=== PATIENT | male | born 1995 | race Caucasian/White ===

== ENCOUNTER 2018-01-23 06:48 | Emergency (ER) | payer SELFPAY ==
[2018-01-23] MEDS ORDERED: MORPHINE SULFATE 2 MG/ML DISP.SYRIN. IV/SQ (07:30)
[2018-01-23 07:37] LABS: ADD MAN DIFF? NO
[2018-01-23 07:40] LABS: BASO # 0.1 x10^3/uL (0.0-0.2); BASO % 1 % (0-3); EOS # 0.1 x10^3/uL (0.0-0.7); EOS % 2 % (0-3); HEMATOCRIT 44.3 % (39.0-53.0); HEMOGLOBIN 15.3 g/dL (13.0-17.5); LYMPH # 2.5 x10^3/uL (1.0-4.8); LYMPH % 27 % (24-48); MEAN CORPUSCULAR HEMOGLOBIN 32 pg (25-35); MEAN CORPUSCULAR HGB CONC 35 g/dL (31-37); MEAN CORPUSCULAR VOLUME 93 fL (79-100); MONO # 0.8 x10^3/uL (0.0-1.1); MONO % 9 % (0-9); NEUT # 5.6 x10^3uL (1.8-7.7); NEUT % 61 % (31-73); PLATELET COUNT 228 x10^3/uL (140-400); RED BLOOD COUNT 4.78 x10^6/uL (4.30-5.70); RED CELL DISTRIBUTION WIDTH 13.1 % (11.5-14.5); WHITE BLOOD COUNT 9.1 x10^3/uL (4.0-11.0)
[2018-01-23] MEDS: IV NORMAL SALINE 1000ML BAG 1,000 ML IV (07:41)
[2018-01-23] MEDS: ONDANSETRON PF 4 MG/2 ML VIAL. IV (07:42)
[2018-01-23] MEDS: MORPHINE SULFATE 4 MG/ML DISP.SYRIN. IV/SQ (07:43)
[2018-01-23 07:51] LABS: ANION GAP 10 (6-14); BLOOD UREA NITROGEN 17 mg/dL (8-26); CALCIUM 9.1 mg/dL (8.5-10.1); CARBON DIOXIDE 26 mmol/L (21-32); CHLORIDE 103 mmol/L (98-107); CREATININE 0.8 mg/dL (0.7-1.3); GLUCOSE 105 mg/dL (70-99); POTASSIUM 3.9 mmol/L (3.5-5.1); SODIUM 139 mmol/L (136-145)
[2018-01-23 07:54] LABS: BILIRUBIN,URINE NEGATIVE (NEG); CLARITY,URINE CLEAR; COLOR,URINE YELLOW; GLUCOSE,URINE NEGATIVE (NEG); NITRITE,URINE NEGATIVE (NEG); PROTEIN,URINE NEGATIVE (NEG-TRACE); UROBILINOGEN,URINE 0.2 mg/dL (0.2 mg/dL)
[2018-01-23 07:57] LABS: ALBUMIN 3.8 g/dL (3.4-5.0); ALK PHOS 70 U/L (46-116); ALT (SGPT) 22 U/L (16-63); AST (SGOT) 16 U/L (15-37); DIRECT BILIRUBIN 0.1 mg/dL (0.0-0.2); TOTAL BILIRUBIN 0.4 mg/dL (0.2-1.0); TOTAL PROTEIN 7.5 g/dL (6.4-8.2)
[2018-01-23 08:14] LABS: BACTERIA,URINE FEW /HPF (0-FEW); RBC,URINE RARE /HPF (0-2); SQUAMOUS EPITHELIAL CELL,UR OCC /LPF; WBC,URINE OCC /HPF (0-4)
[2018-01-23] MEDS ORDERED: CONTRAST GIVEN MC (08:45)
[2018-01-23] MEDS ORDERED: IOHEXOL 300 MG/ML 100ML VIAL. IV (08:45)
[2018-01-23 08:52] LABS: BARBITURATES NEG (NEG); BENZODIAZEPINES NEG (NEG); CANNABINOIDS POS (NEG); COCAINE NEG (NEG); METHADONE NEG (NEG); OPIATES POS (NEG); PHENCYCLIDINE NEG (NEG)
[2018-01-23 08:53] LABS: AMPHETAMINE/METHAMPHETAMINE NEG (NEG); ETHANOL, URINE NEG (NEG)
== END 2018-01-23 08:43 | disposition left against medical advice (07) ==
LOC: ER 06:48
DX: R10.32 Left lower quadrant pain (principal); R35.0 Frequency of micturition
CPT/HCPCS: 36415; 80048; 80076; 80307; 81001; 85025; 96361; 96374; 96375; 99284-25; J2270; J2405; J7030

== ENCOUNTER 2020-03-16 14:20 | Emergency (ER) | payer SELFPAY ==
[~2020-03-16] VITALS: Ht 175.3 cm; Wt 96.0 kg
[~2020-03-16 14:20] MED LIST: DICY20TA3 PO
[2020-03-16 14:27] VITALS: BP 140/88
[2020-03-16] MEDS ORDERED: CYCL10TA2 PO (15:10)
[2020-03-16] MEDS ORDERED: METH4TAB2 PO (15:10)
--- NOTE | 2020-03-16 15:10 | PHYS DOC ---
Past Medical History Past Medical History: Unknown, Other Additional Past Medical Histor: "bleeding ulcer" Past Surgical History: Other Additional Past Surgical Histo: right wrist surgery Smoking Status: Current Every Day Smoker Alcohol Use: None Drug Use: Marijuana Social History Narrative: LAST USED [facility] 8 MOS AGO General Adult EDM: Chief Complaint: BACK PAIN OR INJURY HPI: HPI: Patient is a 24 year old male who presents the ED today complaining of 7 out of 10 mid and upper back pain that began 2 days ago after lifting furniture helping a friend move. Patient denies any injury. Reports the pain is worse when he is laying down. He states his been trying natural remedies with no relief and would like something for his pain. He reports he is allergic to Tylenol ibuprofen and tramadol. Denies any pain radiating to bilateral upper or lower extremities. Denies any numbness or tingling to bilateral upper or lower extremities. Review of Systems: Review of Systems: Constitutional: Denies fever or chills. [] GI: Denies abdominal pain, nausea, vomiting, bloody stools or diarrhea. [] : Denies dysuria. [] Musculoskeletal: Reports mid and upper back Integument: Denies rash. [] Neurologic: Denies headache, focal weakness or sensory changes. [] Psychiatric: Denies depression or anxiety. [] Heart Score: Risk Factors: Risk Factors: DM, Current or recent (<one month) smoker, HTN, HLP, family history of CAD, obesity. Risk Scores: Score 0 - 3: 2.5% MACE over next 6 weeks - Discharge Home Score 4 - 6: 20.3% MACE over next 6 weeks - Admit for Clinical Observation Score 7 - 10: 72.7% MACE over next 6 weeks - Early Invasive Strategies Allergies: Allergies: Allergies Coded Allergies Type Severity Reaction Last Updated Verified acetaminophen Allergy Intermediate 03/16/20 Yes ibuprofen Allergy Intermediate 03/16/20 Yes tramadol Allergy Intermediate 03/16/20 Yes Physical Exam: PE: Constitutional: Well developed, well nourished, no acute distress, non-toxic appearance. [] Abdomen: Bowel sounds normal, soft, no tenderness, no masses, no pulsatile masses. [] Skin: Warm, dry, no erythema, no rash. [] Back: Spine exam deferred, patient thrashing around in the chair Extremities: No tenderness, no cyanosis, no clubbing, ROM intact, no edema. [] Neurologic: Alert and oriented X 3, normal motor function, normal sensory function, no focal deficits noted. [] Psychologic: Affect normal, judgement normal, mood normal. [] Current Patient Data: Vital Signs: Vital Signs Date Time Temp Pulse Resp B/P (MAP) Pulse Ox O2 Delivery O2 Flow Rate FiO2 03/16/20 14:27 98.7 99 16 140/88 (105) 100 Room Air 98.7 EKG: EKG: [] Radiology/Procedures: Radiology/Procedures: [] Course & Med Decision Making: Course & Med Decision Making Pertinent Labs and Imaging studies reviewed. (See chart for details) This is a 24-year-old male patient presenting to the ED today with mid and upper back pain that began 2 days ago after helping his friend move. Patient is requesting something for his pain stating he is allergic to Tylenol ibuprofen and tramadol. Informed patient we can write him prescription for topical Voltaren cream, cyclobenzaprine and Medrol Dosepak. Informed patient narcotics are not recommended for back pain hence we will not write him any narcotics. Informed patient we will give him referral to a internet security specialist, pain clinic and also recommended chiropractor. Dragon Disclaimer: [facility] Disclaimer: This electronic medical record was generated, in whole or in part, using a voice recognition dictation system. Departure Departure Impression: Primary Impression: Acute thoracic myofascial strain Qualified Codes: S29.019A - Strain of muscle and tendon of unspecified wall of thorax, initial encounter Disposition: HOME, SELF-CARE Condition: STABLE Referrals: NO PCP (PCP) SANDIP LIRIANO MD follow up in 1 week YOLANDE MATHEW MD follow up in 1 week Patient Instructions: Thoracic Strain, [id number] Additional Instructions: You were seen for back pain, we recommend you establish care with the provided back pain clinic doctor and you can follow-up with them as an outpatient. Use the medicines prescribed as ordered. Scripts Cyclobenzaprine Hcl (CYCLOBENZAPRINE HCL) 10 Mg Tablet 1 TAB PO TID, #30 TAB Prov: MUTUNGA,ALLAN BARKING MACHINE FEEDER 03/16/20 Methylprednisolone (MEDROL) 4 Mg Tab.ds.pk 1 PKG PO UD, #1 PKG Prov: MUTUNGA,ALLAN BARKING MACHINE FEEDER 03/16/20 MUTUNGA,ALLAN BARKING MACHINE FEEDER March 16, 2020 15:10
== END 2020-03-16 15:43 | disposition home or self-care (01) ==
LOC: ER 14:20
DX: S29.019A Strain of muscle and tendon of unspecified wall of thorax, initial encounter (principal); F17.200 Nicotine dependence, unspecified, uncomplicated; Z88.6 Allergy status to analgesic agent; Z88.8 Allergy status to other drugs, medicaments and biological substances; X50.0XXA Overexertion from strenuous movement or load, initial encounter; Y93.89 Activity, other specified; Y92.89 Other specified places as the place of occurrence of the external cause; Y99.8 Other external cause status
CPT/HCPCS: 99283